=== PATIENT | male | born 1990 | race Caucasian/White ===

== ENCOUNTER → 2021-02-28 | Outpatient (REF) | LOC: M PLAIMG 10:55 | PROVIDERS: ATTEND Internal Medicine | DX: Z00.00 Encounter for general adult medical examination without abnormal findings (principal) ==

== ENCOUNTER 2022-03-28 11:37 | Emergency (ER) | payer OTHER ==
[~2022-03-28] VITALS: Ht 172.7 cm; Wt 105.0 kg
[2022-03-28 11:38] VITALS: BP 139/97
[2022-03-28] MEDS ORDERED: ABIL10TA9 PO (11:50)
[2022-03-28] MEDS ORDERED: STRA10CA PO (11:50)
[2022-03-28] MEDS ORDERED: MELO15TA28 PO (11:50)
[2022-03-28 15:05] LABS: GC DNA AMPLIFICATION NEGATIVE (NEGATIVE)
== END 2022-03-28 15:24 | disposition home or self-care (01) ==
LOC: M ED 11:37
DX: R30.0 Dysuria (principal); N52.9 Male erectile dysfunction, unspecified; F41.9 Anxiety disorder, unspecified; F32.A Depression, unspecified; F31.9 Bipolar disorder, unspecified; F10.10 Alcohol abuse, uncomplicated; Z88.1 Allergy status to other antibiotic agents; Z79.811 Long term (current) use of aromatase inhibitors; Z79.1 Long term (current) use of non-steroidal anti-inflammatories (NSAID); Z79.899 Other long term (current) drug therapy

== ENCOUNTER → 2022-04-25 | Outpatient (REF) | payer OTHER ==
[~2022-04-25] MED LIST: ABIL10TA9 PO; MELO15TA28 PO; STRA10CA PO
[2022-04-25 11:31] LABS: APPEARANCE, URINE HAZY (CLEAR); BACTERIA, URINE AUTO NEGATIVE (NEGATIVE); BILIRUBIN, URINE AUTO NEGATIVE (NEGATIVE); BLOOD, URINE BLOOD NEGATIVE (NEGATIVE); COLOR, URINE YELLOW (YELLOW); GLUCOSE, URINE (UA) AUTO NEGATIVE (NEGATIVE); KETONE, URINE AUTO NEGATIVE (NEGATIVE); LEUKOCYTE ESTERASE, URINE AUTO NEGATIVE (NEGATIVE); MUCUS, URINE SMALL (NEGATIVE); NITRITE, URINE AUTO NEGATIVE (NEGATIVE); PROTEIN, URINE AUTO NEGATIVE (NEGATIVE); RBC, URINE AUTO 1 /HPF (0-3); SPECIFIC GRAVITY URINE AUTO 1.023 (1.002-1.035); SQUAMOUS EPITHELIAL CELL UR AU 0 /HPF (0-6); UROBILINOGEN, URINE AUTO 0.2 mg/dL (0.0-2.0); WBC, URINE AUTO 1 /HPF (0-3)
== END ==
LOC: M SMT 10:09
PROVIDERS: ATTEND Physician Assistant
DX: R30.0 Dysuria (principal)